=== PATIENT | female | born 1955 | race Caucasian/White ===

== ENCOUNTER 2021-06-22 09:01 | Day surgery (SDC) | payer MEDICARE, BC ==
[~2021-06-22 09:01] MED LIST: Lactated Ringers 1,000 ML IV SCH; Sodium Chloride 0.9% 10 ML Syringe FLUSH PRN
[2021-06-22] MEDS ORDERED: Glycopyrrolate 0.2 MG/ML SDV IVPUSH ONE (09:02)
[2021-06-22] MEDS ORDERED: Propofol 200 MG/20 ML SDV IV ONE (09:02)
[2021-06-22] MEDS ORDERED: FLU Vacc QS2021(65UP)/MF59C/PF 60 MCG/0.5 ML Syringe IM ONE (09:45)
[2021-06-22] MEDS ORDERED: Midazolam 1 MG/ML 2 ML SDV ONE (09:48)
[2021-06-22] MEDS ORDERED: Propofol 200 MG/20 ML SDV ONE ×2 (09:48→10:12)
--- NOTE | 2021-06-22 10:11 | PCM.PN ---
- General Info Date of Service: 06/22/21 - Review of Systems Systems Review Comment:: 65-year-old female referred for screening colonoscopy. Patient does note a longstanding history of irregular bowel function. She also notes postprandial left upper quadrant abdominal pain as well as persistent nausea. EGD also recommended and patient agrees to this. She is medically stable to proceed today. Her recent history and physical is reviewed and no significant changes are noted. I have discussed the proposed EGD and colonoscopy with the patient. Her questions were answered and she agrees to proceed accepting risks. - Patient Data Vitals - Most Recent: Last Vital Signs Temp 97.7 F 06/22/21 09:15 Pulse 103 H 06/22/21 09:15 Resp 18 06/22/21 09:15 BP 139/86 06/22/21 09:15 Pulse Ox 96 06/22/21 09:15 Weight - Most Recent: 72.575 kg Med Orders - Current: Current Medications Lactated Ringer's (Ringers, Lactated) 1,000 mls @ 50 mls/hr IV ASDIRECTED ADILIA Sodium Chloride (Sodium Chloride 0.9% 10 Ml Syringe) 10 ml FLUSH Q8HR PRN PRN Reason: keep vein open Discontinued Medications Influenza Virus Vaccine (Flu Vacc Fg7981(65up)/Mf59c/Pf 60 Mcg/0.5 Ml Syringe) 60 mcg IM .ONCE ONE Stop: 06/22/21 09:46 Midazolam HCl (Midazolam 1 Mg/Ml 2 Ml Sdv) Confirm Administered Dose 2 mg .ROUTE .STK-MED ONE Stop: 06/22/21 09:49 Propofol (Propofol 200 Mg/20 Ml Sdv) Confirm Administered Dose 200 mg .ROUTE .STK-MED ONE Stop: 06/22/21 09:49 Sepsis Event Note - Focused Exam Vital Signs: Vital Signs Temp Pulse Resp BP Pulse Ox 06/22/21 09:15 97.7 F 103 H 18 139/86 96 - Problem List Review Problem List Initiated/Reviewed/Updated: Yes - My Orders Last 24 Hours: My Active Orders 06/21/21 13:51 Resuscitation Status Routine 06/22/21 Breakfast Nothing Per Oral Diet [DIET] 06/22/21 09:00 Patient to Empty Bladder [RC] ASDIRECTED Peripheral IV Care [RC] . DIRECTED Lactated Ringers [Ringers, Lactated] 1,000 ml IV ASDIRECTED Sodium Chloride 0.9% [Saline Flush] 10 ml FLUSH Q8HR PRN Peripheral IV Insertion Adult [OM.PC] Routine 06/22/21 09:26 Vaccine to be Administered/Admin Charge [RC] ASDIRECTED 06/22/21 10:30 Verify Patient Consent Obtain [RC] ASDIRECTED - Assessment Assessment:: Nausea Abdominal pain Colon cancer screening - Plan Plan:: EGD and colonoscopy
[2021-06-22] MEDS ORDERED: Lidocaine 2% 5 ML SDV ONE (10:12)
[2021-06-22] MEDS ORDERED: Lactated Ringers 1,000 ML ONE (11:04)
--- NOTE | 2021-06-22 11:04 | PCM.OPNOTE ---
- General Post-Op/Procedure Note Date of Surgery/Procedure: 06/22/21 Operative Procedure(s): EGD with Biopsy. Colonoscopy Findings: Small Hiatal Hernia without visible inflammation Mild Sigmoid Diverticulosis Pre Op Diagnosis: Colon Cancer Screening. Abdominal pain Post-Op Diagnosis: Hiatal Hernia. Sigmoid Diverticulosis Anesthesia Technique: MAC Primary Surgeon: Richard Anaya Pathology: Biopsies of Duodenum and Stomach EBL in mLs: 2 Complications: None Condition: Good
[2021-06-22] MEDS ORDERED: Ketorolac 30 MG/ML SDV ONE (11:05)
--- NOTE | 2021-06-22 12:28 | OR ---
DATE OF SURGERY: 06/22/2021 SURGEON: Richard Anaya MD PREOPERATIVE DIAGNOSIS: Abdominal pain, colon cancer screening. POSTOPERATIVE DIAGNOSIS: Hiatal hernia, sigmoid diverticulosis. OPERATION PERFORMED: Esophagogastroduodenoscopy with biopsy and colonoscopy. INDICATIONS FOR SURGERY: This 65-year-old female is having persistent and unexplained nausea and left upper quadrant abdominal pain. She is also referred for screening colonoscopy. FINDINGS: In the patient's stomach, she has a small hiatal hernia which does not appear to be acutely inflamed or otherwise complicated. The remainder of the esophagus, stomach, and duodenum to the fourth portion appear normal. During colonoscopy, the patient was noted to have a mild degree of diverticulosis in the sigmoid region, which was not acutely inflamed. The remainder of the colon and terminal ileum appeared normal. DESCRIPTION OF PROCEDURE: The patient was taken to the operating room. She was given intravenous sedation, and with her in the left lateral decubitus position, digital rectal exam was performed showing no rectal masses. The Olympus colonoscope was inserted into the rectum. Retroflexed examination of the rectal canal was performed. The scope was then carefully advanced under direct visualization through the entire length of the colon until the cecum was reached. The colon was somewhat tortuous and hand pressure was required to reach the cecum, but this was able to be safely accomplished. Cecal acquisition was confirmed by noting normal internal cecal anatomy including the appendiceal orifice and the ileocecal valve. The ileocecal valve was cannulated and the terminal ileum examined and it appeared normal. The scope was then slowly withdrawn sequentially re-examining the colonic segments until the entire colon and rectum had been fully examined. The scope was removed and attention was turned to upper endoscopy. The Olympus gastroscope was advanced through a mouth guard into the oral cavity. It was then advanced under direct visualization through the oropharynx into the esophagus and down through the esophagus, stomach, and into the duodenum where examination to the fourth portion was performed. The duodenum was carefully examined and random biopsies were taken because of the patient's symptoms. The scope was withdrawn back into the stomach where full examination including retroflexed examination of the fundus was carried out. Random biopsies of the antrum and the greater curvature were taken because of the patient's symptoms. After the stomach was examined, the GE junction and esophagus were then carefully examined and the scope was removed. The patient was then taken from the operating room in satisfactory condition. ESTIMATED BLOOD LOSS: 2 mL. COMPLICATIONS: None. PROGNOSIS: Good. /[id number]/MODL
== END 2021-06-22 12:57 | disposition home or self-care (01) ==
LOC: KA.SDS 09:01
PROVIDERS: ATTEND Surgery
DX: Z12.11 Encounter for screening for malignant neoplasm of colon (principal); K57.30 Diverticulosis of large intestine without perforation or abscess without bleeding; K44.9 Diaphragmatic hernia without obstruction or gangrene; E78.5 Hyperlipidemia, unspecified; E03.9 Hypothyroidism, unspecified; G89.29 Other chronic pain; K29.50 Unspecified chronic gastritis without bleeding; K31.89 Other diseases of stomach and duodenum; Z88.8 Allergy status to other drugs, medicaments and biological substances; Z79.899 Other long term (current) drug therapy; Z98.890 Other specified postprocedural states
CPT/HCPCS: 00813; J1885; J2250; J2704; J3490; J7120